=== PATIENT | female | born 1990 | race African-American/Black ===

== ENCOUNTER 2018-08-11 09:13 | Emergency (ER) | payer BC, OTHER ==
[2018-08-11 09:17] VITALS: BMI 31.9
--- NOTE | 2018-08-11 09:35 | PDOC ---
History of Present Illness - General Chief Complaint: Vomiting/Diarrhea Stated Complaint: VOMITING/DIARRHEA Time Seen by Provider: 08/11/18 09:34 History Source: Patient Exam Limitations: No Limitations - History of Present Illness Initial Comments: 08/11/18 09:35 28 year old woman A0 with history anemia who presents with NBNB vomiting, nonbloody diarrhea and 8-9/10 abdominal pain (now resolved) that started yesterday at around 1630. The patient cannot count how many times she vomited yesterday but notes 5 episodes this AM. The patient also reports multiple episodes of diarrhea. Patient reports that her two children and all had the same food, but she was the only one who has had nausea, vomiting or diarrhea. Symptoms were associated with headache, but patient denies fever, dysuria, hematuria. Patient reports that there is a chance that she could be . Her menses this month were 8 days late and she bleed 2 days after her menses ended on Jul 27 and , much heavier than her normal period, containing clots associated with lower abdominal/pelvic pain. Patient was able to drink Gatorade this morning and keep it down. Denies fever, chest pain, shortness of breath, dysuria, hematuria. Denies recent travel, sick contacts. Denies any other complaints at bedside. PSHX: 2 C-sections, 2009, 2012, no other abdominal surgery. Past History - Past Medical History Allergies/Adverse Reactions: Allergies Allergy/AdvReac Type Severity Reaction Status Date / Time No Known Allergies Allergy Verified 04/19/15 09:02 Home Medications: Ambulatory Orders Ondansetron [Zofran -] 4 mg PO BID #14 tablet 08/11/18 Anemia: Yes Asthma: No Cancer: No Cardiac Disorders: No CVA: No COPD: No CHF: No Dementia: No Diabetes: No GI Disorders: No Disorders: No HTN: No Hypercholesterolemia: No Liver Disease: No Seizures: No Thyroid Disease: No - Surgical History Abdominal Surgery: Yes (csectionx2) Appendectomy: No Cardiac Surgery: No Cholecystectomy: No Lung Surgery: No Neurologic Surgery: No Orthopedic Surgery: No - Family Disease History Family Disease History: Diabetes: Grandparents - Reproductive History (#): 2 Para: 2 - Immunization History Immunization Up to Date: No - Suicide/Smoking/Psychosocial Hx Smoking Status: No Smoking History: Never smoked Have you smoked in the past 12 months: No Number of Cigarettes Smoked Daily: 0 Information on smoking cessation initiated: No Hx Alcohol Use: No Drug/Substance Use Hx: No Substance Use Type: None Hx Substance Use Treatment: No *Physical Exam - Vital Signs Last Vital Signs Temp Pulse Resp BP Pulse Ox 98.4 F 96 H 18 122/69 100 08/11/18 09:15 08/11/18 09:15 08/11/18 09:15 08/11/18 09:15 08/11/18 09:15 - Physical Exam Comments: 08/11/18 10:27 GENERAL: Awake, alert, and fully oriented, in no acute distress HEAD: No signs of trauma, normocephalic, atraumatic EYES: EOMI, sclera anicteric, conjunctiva clear ENT: oropharynx clear without exudates. Moist mucosa NECK: Normal ROM, supple LUNGS: No distress, speaks full sentences, clear to auscultation bilaterally HEART: Regular rate and rhythm, normal S1 and S2, no murmurs, rubs or gallops, peripheral pulses normal and equal bilaterally. ABDOMEN: Soft, + periumbilical tenderness to palpation, normoactive bowel sounds. No guarding, no rebound. No masses BACK: No CVA tenderness EXTREMITIES : Normal inspection, Normal range of motion, no edema. No clubbing or cyanosis. NEUROLOGICAL: Cranial nerves II through XII grossly intact. Normal speech, normal gait, no focal sensorimotor deficits SKIN: Warm, Dry, normal turgor, no rashes or lesions noted PELVIC: closed cervical os, thick white fluid clinging to vaginal prasad, cervical motion "aching" but not painful Moderate Sedation - Procedure Monitoring Vital Signs: Procedure Monitoring Vital Signs Temperature 98.4 F 08/11/18 09:15 Pulse Rate 96 H 08/11/18 09:15 Respiratory Rate 18 08/11/18 09:15 Blood Pressure 122/69 08/11/18 09:15 O2 Sat by Pulse Oximetry (%) 100 08/11/18 09:15 ED Treatment Course - LABORATORY CBC & Chemistry Diagram: 08/11/18 09:56 08/11/18 09:56 Medical Decision Making - Medical Decision Making 08/11/18 09:58 28 year old woman A0 with history anemia who presents with NBNB vomiting, nonbloody diarrhea and 8-9/10 abdominal pain (now resolved) that started yesterday at around 1630. The patient cannot count how many times she vomited yesterday but notes 5 episodes this AM. The patient also reports multiple episodes of diarrhea. Symptoms were associated with headache, but patient denies fever, dysuria, hematuria. Patient reports that there is a chance that she could be . Her menses this month were 8 days late and she bleed 2 days after her menses ended on Jul 27 and , much heavier than her normal period, containing clots associated with lower abdominal/pelvic pain. Patient was able to drink Gatorade this morning and keep it down. ED Course: gastroenteritis vs IUP vs ectopic vs pancreatitis vs complete abortin Patient with acute onset of vomititng and diarrhea likely gastroenterieits However with abnormal menstrual cycles this month, possible vs complete as patient had passage of clot with heavy bleeding and pelvic pain/pressure. Patient with periumbilical pain consider pancreatitis. CBC, cmp, lipase, ua, ucs, upreg, G/C swab symptom relief with reglan, fluids, tylenol, reassess 08/11/18 11:49 Patient reassessed. reports feeling improved. resting comfortably. cbc, cmp, lipase - unremarkable Upreg- negative ua- negative 08/11/18 13:56 PO trial successful. Patient feels improved. Patient stable for discharge. Informed of all lab and imaging results. Given follow up instructions and strict return precautions. Patient expressed understanding and agree to plan. *DC/Admit/Observation/Transfer Diagnosis at time of Disposition: Gastroenteritis - Discharge Dispostion Disposition: HOME Condition at time of disposition: Stable Decision to Admit order: No - Prescriptions Prescriptions: Ondansetron [Zofran -] 4 mg PO BID #14 tablet - Referrals - Patient Instructions Printed Discharge Instructions: DI for Viral Gastroenteritis -- Adult Additional Instructions: You were seen in the ED for complaints of vomiting and diarrhea In the ED you were evaluated with labwork. Your results were unremarkable and you showed improvement with antinausea medications and fluids. There does not appear to be an acute need for immediate hospitalization. You are advised to follow up with your Primary Care Physician within 1 week. You were given a prescription for Zofran antinausea medicine to be used as needed. Please take medication as directed. Return to the ED immediately if you experience worsening nausea, vomiting, blood in the vomit, blood in the stool, fever, worsening abdominal pain, vaginal bleeding or discharge, chest pain or shortness of breath. - Post Discharge Activity Forms/Work/School Notes: Back to Work
[2018-08-11] MEDS ORDERED: METOCLOPRAMIDE HCL INJECTION 10 MG/2 ML VIAL IVPUSH ONE (09:57)
[2018-08-11] MEDS ORDERED: SODIUM CHLORIDE 1,000 ML IV SCH (10:00)
[2018-08-11] MEDS ORDERED: METOCLOPRAMIDE HCL INJECTION 10 MG/2 ML VIAL ONE (10:09)
[2018-08-11 10:17] LABS: URINE APPEARANCE CLEAR; URINE BILIRUBIN NEGATIVE (<2.0 mg/dL); URINE COLOR LTYELLOW; URINE GLUCOSE (UA) NEGATIVE (NEGATIVE); URINE KETONE NEGATIVE (NEGATIVE); URINE LEUK ESTERASE TRACE (NEGATIVE); URINE NITRITE NEGATIVE (NEGATIVE); URINE PROTEIN NEGATIVE (NEGATIVE); URINE UROBILINOGEN NEGATIVE mg/dL (0.2-1.0)
[2018-08-11 10:19] LABS: HCG,QUALITATIVE URINE Negative
[2018-08-11] MEDS ORDERED: ACETAMINOPHEN 1000 MG/100 ML VIAL (NON FORMULARY) IVPB ONE (10:24)
[2018-08-11] MEDS ORDERED: ACETAMINOPHEN INJECTION 100 ML IVPB ONE (10:35)
[2018-08-11 11:02] LABS: EPI CELLS MODERATE /HPF (FEW); URINE MUCUS RARE
[2018-08-11 11:07] LABS: BASO % 0.2 % (0-2.0); EOS % 0.3 % (0-4.5); HEMATOCRIT 38.8 % (32.4-45.2); HEMOGLOBIN 11.9 GM/dL (10.7-15.3); LYMPH % 5.2 % (8-40); MCH 25.3 pg (25.7-33.7); MCHC 30.8 g/dl (32.0-36.0); MEAN CELL VOLUME 82.1 fl (80-96); MEAN PLT VOLUME 7.1 fl (7.5-11.1); MONO % 3.4 % (3.8-10.2); NEUT % 90.9 % (42.8-82.8); PLATELET COUNT 389 K/MM3 (134-434); RBC 4.72 M/mm3 (3.60-5.2); WHITE BLOOD COUNT 5.9 K/mm3 (4.0-10.0)
--- NOTE | 2018-08-11 11:38 | PDOC ---
Attending Attestation - Resident Resident Name: Dedra Youngblood - ED Attending Attestation I have performed the following: I have examined & evaluated the patient, The case was reviewed & discussed with the resident, I agree w/resident's findings & plan, Exceptions are as noted - HPI HPI: 08/11/18 11:35 The patient is a 28 year old female with a past medical history of anemia who presents with vomiting, diarrhea and abdominal cramps that started yesterday at around 1630. Patient reports multiple episodes of nonbilious nonbloody vomiting , and states she had 5 episodes this morning. She also reports multiple episodes of diarrhea as well as pain around her bellybutton that is now resolved. Pt states that the pain was cramp-like and associated with vomiting. Denies any pain currently. Denies fever, chest pain, shortness of breath, dysuria, hematuria. Denies recent travel, sick contacts. Denies any other complaints at bedside. Deneis sick contact. Denies recent travel. Surgical hx: x2 - Physicial Exam PE: 08/11/18 11:36 "GENERAL: Awake, alert, and fully oriented, in no acute distress. HEAD: No signs of trauma EYES: PERRLA, EOMI, sclera anicteric, conjunctiva clear ENT: Auricles normal inspection, hearing grossly normal, nares patent, oropharynx clear without exudates. Moist mucosa NECK: Nontender, no stepoffs, Normal ROM, supple, no lymphadenopathy, JVD, or masses LUNGS: Breath sounds equal, clear to auscultation bilaterally. No wheezes, and no crackles HEART: Regular rate and rhythm, normal S1 and S2, no murmurs, rubs or gallops ABDOMEN: Soft, nontender, normoactive bowel sounds. No guarding, no rebound. No masses EXTREMITIES: Normal range of motion, no edema. No clubbing or cyanosis. No cords, erythema, or tenderness NEUROLOGICAL: Cranial nerves II through XII intact. 5/5 strength and sensation in all extremities, Normal speech, normal gait, normal cerebellar function SKIN: Warm, Dry, normal turgor, no rashes or lesions noted. - Medical Decision Making 08/11/18 11:36 28 F with N/V/D and abdominal cramps. likely viral gastroenteritis. Pt with benign abdomen on exam. No evidence of appy/rupa/colitis. - Labs, UA, UPT - IVF, GI cocktail 08/11/18 13:12 Labs wnl UA with 7 WBCs but pt without dysuria. Will defer abx at this time. Pt reassessed - tolerating PO without issue Repeat abdominal exam benign Pt is well appearing, with normal vitals. Clinically stable for DC at this time. I discussed the physical exam findings, ancillary test results and final diagnoses with the patient. I answered all of the patient's questions. The patient was satisfied with the care received and felt comfortable with the discharge plan and treatment plan. The patient agrees to follow up with the primary care physician within 24-72 hours.
[2018-08-11] MEDS ORDERED: FAMOTIDINE 20 MG/50 ML IVPB 20 MG/50 ML MG IVPB ONE ×2 (11:47→12:15)
[2018-08-11] MEDS ORDERED: MAG HYDROX/AL HYDROX/SIMETH 30 ML UNIT-DOSE CUP PO ONE (11:47)
[2018-08-11] MEDS ORDERED: MAG HYDROX/AL HYDROX/SIMETH 30 ML UNIT-DOSE CUP ONE (12:15)
[2018-08-11 13:09] LABS: ALBUMIN 3.9 g/dl (3.4-5.0); ALK PHOS 49 U/L (45-117); ANION GAP 7 MMOL/L (8-16); BILIRUBIN,TOTAL 0.4 mg/dL (0.2-1); BLOOD UREA NITROGEN 10 mg/dL (7-18); CHLORIDE 107 mmol/L (98-107); CO2 24 mmol/L (21-32); CREATININE 1.1 mg/dL (0.55-1.3); GLUCOSE,RANDOM 91 mg/dL (74-106); LIPASE 146 U/L (73-393); POTASSIUM 3.8 mmol/L (3.5-5.1); SGOT/AST 19 U/L (15-37); SGPT/ALT 27 U/L (13-61); SODIUM 138 mmol/L (136-145); TOT PROT 7.4 g/dl (6.4-8.2)
[2018-08-11 13:16] VITALS: BP 112/65; PULSE 73; TEMP 98.8
== END 2018-08-11 14:15 | disposition home or self-care (01) ==
LOC: JER 09:13
PROC: 3E0337Z Introduction of Electrolytic and Water Balance Substance into Peripheral Vein, Percutaneous Approach (ICD-10-PCS; principal; 2018-08-11)
PROC: 3E033GC Introduction of Other Therapeutic Substance into Peripheral Vein, Percutaneous Approach (ICD-10-PCS; 2018-08-11)
PROC: 3E033GC Introduction of Other Therapeutic Substance into Peripheral Vein, Percutaneous Approach (ICD-10-PCS; 2018-08-11)
PROC: 3E033NZ Introduction of Analgesics, Hypnotics, Sedatives into Peripheral Vein, Percutaneous Approach (ICD-10-PCS; 2018-08-11)
DX: K52.9 Noninfective gastroenteritis and colitis, unspecified (principal)
CPT/HCPCS: 36415; 80053; 81003; 81015; 83690; 84703; 85025; 86850; 86900; 86901; 87086; 87491; 87591; 99282-25; J0131; J7030

== ENCOUNTER 2019-09-10 12:09 | Inpatient (IN) | payer OTHER ==
[2019-09-10 13:06] VITALS: BMI 36.6
[2019-09-10] MEDS ORDERED: morphine SULFATE/PF 0.5 MG/ML (2cc Syringe - QUVA) EP ONE (13:10)
[2019-09-10] MEDS ORDERED: ONDANSETRON 4 MG/2 ML VIAL IVPUSH PRN (13:10)
[2019-09-10] MEDS ORDERED: OXYTOCIN 20 UNITS in 0.9% NS 20 UNIT/1,000 ML INFUS.BAG IV ONE ×2 (13:48→15:06)
[2019-09-10] MEDS ORDERED: CITRIC ACID/SODIUM CITRATE 30 ML UNIT-DOSE CUP PO ONE (14:00)
[2019-09-10] MEDS ORDERED: ELECTROLYTE-148 SOLN 1,000 ML IV SCH ×2 (14:00→15:00)
[2019-09-10] MEDS ORDERED: morphine SULFATE/PF 0.5 MG/ML (2cc Syringe - QUVA) ONE (14:16)
[2019-09-10] MEDS ORDERED: PHENYLEPHRINE HCL 10 MG/1 ML SINGLE DOSE VIAL ONE (14:26)
[2019-09-10] MEDS ORDERED: OXYTOCIN 10 UNITS/ML VIAL ONE (14:42)
[2019-09-10] MEDS ORDERED: oxyCODONE HCL 5 MG TABLET PO PRN (15:54)
[2019-09-10] MEDS ORDERED: WITCH HAZEL 50% (TUCKS) 40 PAD/JAR PAD TP PRN (15:54)
[2019-09-10] MEDS ORDERED: BENZOCAINE 28 GM HEMORRHOIDAL OINTMENT PR PRN (15:54)
[2019-09-10] MEDS ORDERED: BENZOCAINE 20% 57 GM BOTTLE TP PRN (15:54)
[2019-09-10] MEDS ORDERED: METHYLERGONOVINE MALEATE 0.2 MG/1 ML AMP IM PRN (15:54)
[2019-09-10] MEDS ORDERED: diphenhydrAMINE HCL 25 MG CAPSULE (FP) PO PRN (15:54)
--- NOTE | 2019-09-10 15:56 | HP ---
Past Medical History - Primary Care Physician PCP:: Av Hargrove - Admission Chief Complaint: 39 weeks, 2previous c/s, request of repeat c/s History of Present Illness: 29 yo f 39 weeks with 2 previous c/s, request of repeat c/s, risks associated with repeat c/s has explained to patient History Source: Patient Limitations to Obtaining History: No Limitations - Past Medical History ...: 4 ...Para: 2 ...Term: 2 ...: 0 ...Spon : 1 ...Induced : 0 ...LMP: 12/07/18 ... Weeks Gestation by Dates: 39.4 ...EDC by Dates: 09/13/19 ...EDC by Sono: 09/13/19 - Past Surgical History Hx Myomectomy: No Hx Transabdominal Cerclage: No - Smoking History Smoking history: Never smoked Have you smoked in the past 12 months: No Aproximately how many cigarettes per day: 0 - Alcohol/Substance Use Hx Alcohol Use: No - Social History Usual Living Arrangement: Yes: With Spouse History of Recent Travel: No Home Medications - Allergies Allergies/Adverse Reactions: Allergies Allergy/AdvReac Type Severity Reaction Status Date / Time No Known Allergies Allergy Verified 09/10/19 14:01 - Home Medications Home Medications: Ambulatory Orders Ferrous Sulfate [Iron] 325 mg PO DAILY 09/10/19 Vitamins (Sjr) - 1 tab PO DAILY 09/10/19 Ibuprofen [Motrin -] 600 mg PO QID PRN #28 tablet 09/13/19 Review of Systems - Review of Systems Eyes: reports: No Symptoms HENT: reports: No Symptoms Neck: reports: No Symptoms Cardiovascular: reports: No Symptoms Respiratory: reports: No Symptoms Gastrointestinal: reports: No Symptoms Genitourinary: reports: No Symptoms Breasts: reports: No Symptoms Reported Musculoskeletal: reports: No Symptoms Integumentary: reports: No Symptoms Neurological: reports: No Symptoms Endocrine: reports: No Symptoms Hematology/Lymphatic: reports: No Symptoms Psychiatric: reports: No Symptoms Physical Exam - Maternity Vital Signs: Vital Signs Temperature 98.1 F 09/10/19 12:55 Pulse Rate 87 09/10/19 12:55 Respiratory Rate 09/10/19 12:55 Blood Pressure 122/66 09/10/19 12:55 O2 Sat by Pulse Oximetry (%) Constitutional: Yes: Well Nourished, No Distress, Calm Eyes: Yes: WNL, Conjunctiva Clear, EOM Intact HENT: Yes: WNL, Atraumatic, Normocephalic Neck: Yes: WNL, Supple, Trachea Midline Cardiovascular: Yes: WNL, Regular Rate and Rhythm Breast(s): Yes: WNL - Abdominal Exam/OB Fundal Height: 40 Number of Fetuses: Single Presentation: Vertex Contractions: No Regularity: Irritability Intensity: Unaware Monitor Mode: External Heart Rate Location: [facility] - Vaginal Exam/OB Vaginal Bleediing: No Speculum Exam: No Dilatation (cm): closed Effacement (%): 25 Amniotic Membrane Status: Intact Station: -3 - Physical Exam Musculoskeletal: Yes: WNL Extremities: Yes: WNL Edema: LLE: Trace, RLE: Trace Deep Tendon Reflex Grade: Normal +2 Psychiatric: Yes: WNL Hemorrhage Risk Assessment - Risk Factors Medium Risk Factors: Yes: Prior , uterine surgery,or multiple laparotomies Risk Score: 1 Risk Level: Medium Risk Problem List - Problems (1) with 39 completed weeks gestation Code(s): Z3A.39 - 39 WEEKS GESTATION OF (2) Previous delivery affecting Code(s): O34.219 - MATERNAL CARE FOR UNSP TYPE SCAR FROM PREVIOUS DEL (3) Obesity (BMI 30.0-34.9) Code(s): E66.9 - OBESITY, UNSPECIFIED Assessment/Plan admit for repeat c/s, risks ahs been explained to patient
[2019-09-10] MEDS ORDERED: OXYTOCIN 20 UNITS in 0.9% NS 20 UNIT/1,000 ML INFUS.BAG IV SCH (16:00)
[2019-09-10] MEDS ORDERED: DEXTROSE 5%-LACTATED RINGERS 1,000 ML IV SCH (16:00)
--- NOTE | 2019-09-10 16:14 | OP ---
Operative Note - Note: Operative Date: 09/10/19 Pre-Operative Diagnosis: 39 weeks, previous c/s Operation: repeat LST c/s Findings: live baby girl 9/9 cord around neck once. ROT position, clear AF Surgeon: Av Hargrove Pattern Wheel Maker: Leonardo Anderson Anesthesiologist/SENIOR RESEARCH ASSOCIATE: Marisol Puri Anesthesia: Spinal Specimens Removed: placenta Estimated Blood Loss (mls): 700 Drains & Tubes with Location: lovelace Drains, Volume Out (mls): 100 Blood Volume Replaced (mls): 0 Fluid Volume Replaced (mls): 1,300 Operative Report Dictated: Yes
[2019-09-10] MEDS: IBUPROFEN 800 MG/8 ML IJ IVPB PRN (16:17)
[2019-09-10] MEDS: CEFAZOLIN 1 GM/D5W 1 GM/50 ML BAG IVPB SCH (21:30)
--- NOTE | 2019-09-11 01:46 | OP ---
DATE OF OPERATION: 09/10/2019 PREOPERATIVE DIAGNOSIS: at 39 weeks, previous section, requesting repeat section. POSTOPERATIVE DIAGNOSIS: at 39 weeks, previous section, requesting repeat section, fibroid uterus. PROCEDURE: Repeat low segment transverse section. SURGEON: Av Hargrove MD WARDROBE ASSISTANT: ELLIE Easley ANESTHESIA: Spinal anesthesia. ANESTHESIOLOGIST: Marisol Puri DO FINDINGS: Live baby girl, Apgars 9 and 9, ROT position, cord around the neck x1. DESCRIPTION OF PROCEDURE: Patient was taken to the operating room where after adequate spinal anesthesia, abdomen and perineum were prepped and draped. Pfannenstiel abdominal skin incision was made over the previous incision. Abdominal wall was cut layer by layer until the peritoneum was exposed and incised. Upon entry into the abdominal cavity, lower uterine segment was identified and the uterovesical fold of the peritoneum was established. Bladder was pushed down. Then with the lower blade of the [place] retractor in the pelvis, a low transverse uterine incision was made and the incision was extended laterally. Amniotic sac was entered with clear fluid. Head delivered. Nasal sinuses were suctioned. Cord around the neck x1 was reduced and live baby girl was delivered without any difficulty. Placenta was delivered manually. Uterine cavity was cleared of all remaining tissue. Uterine incision was closed in 2 layers, first layer with 0 Biosyn continuous suture and the second layer with 0 Biosyn imbricating the first layer. There was some sinus bleeding in the lower uterine segment, which was sutured with interrupted suture of 0 Biosyn and hemostasis was established. The pelvic cavity was irrigated. No active bleeding was seen. Bladder flap was closed with 2-0 Vicryl continuous suture. Both tubes and ovaries were normal. Uterus was enlarged, consistent with fibroid uterus. All of the lap pad, sponge, and instrument counts were correct. Peritoneum was closed with 0 Biosyn continuous suture. Muscles were brought together with interrupted suture of 0 Biosyn. Fascia was closed with 0 Biosyn continuous suture, subcutaneous fat with interrupted suture of 0 Biosyn, and skin was closed with 3-0 Vicryl continuous subcuticular suture. Patient tolerated the procedure well and left the OR in good condition. Lashae [id number]
[2019-09-11] MEDS: CEFAZOLIN 1 GM/D5W 1 GM/50 ML BAG IVPB SCH (05:47)
[2019-09-11] MEDS: IBUPROFEN 800 MG/8 ML IJ IVPB PRN (06:44)
--- NOTE | 2019-09-11 07:22 | PN ---
Progress Note (short form) - Note Progress Note: pod 1 s/p repeat c/s.has mild cramps, comfortable Last Vital Signs Temp Pulse Resp BP Pulse Ox 99.3 F 86 20 119/59 L 100 09/11/19 05:53 09/11/19 05:53 09/11/19 07:00 09/11/19 05:53 09/10/19 16:30 abdomen soft, no distension, no cva , incision dry, clean no calf tenderness no excess vaginal bleeding pod1 , s/p repeat LST c/s doing well, plan ambulate cbc advance diet pain management
[2019-09-11 08:42] LABS: BASO % 0.3 % (0-2.0); EOS % 1.3 % (0-4.5); HEMOGLOBIN 9.3 GM/dL (10.7-15.3); LYMPH % 9.3 % (8-40); MCH 26.6 pg (25.7-33.7); MCHC 32.2 g/dl (32.0-36.0); MEAN CELL VOLUME 82.7 fl (80-96); MEAN PLT VOLUME 7.7 fl (7.5-11.1); MONO % 7.1 % (3.8-10.2); PLATELET COUNT 238 K/MM3 (134-434); RBC 3.51 M/mm3 (3.60-5.2); RDW 16.4 % (11.6-15.6); WHITE BLOOD COUNT 8.9 K/mm3 (4.0-10.0)
[2019-09-11] MEDS: ENOXAPARIN NA (PORCINE) 40 MG/0.4 ML DISP.SYRIN SQ SCH (09:09)
[2019-09-11] MEDS ORDERED: BISACODYL 10 MG SUPP.RECT PR PRN (15:54)
[2019-09-11] MEDS: ACETAMINOPHEN 325 MG TABLET (FP) PO PRN ×2 (16:00→23:59)
[2019-09-11] MEDS: IBUPROFEN 600 MG TABLET (FP) PO PRN (16:00)
[2019-09-11] MEDS: SIMETHICONE 80 MG TAB.CHEW (FP) PO PRN (16:01)
[2019-09-12] MEDS: IBUPROFEN 600 MG TABLET (FP) PO PRN ×4 (08:15→21:43)
[2019-09-12] MEDS: SIMETHICONE 80 MG TAB.CHEW (FP) PO PRN ×4 (08:15→21:42)
[2019-09-12] MEDS: oxyCODONE HCL 5 MG TABLET PO PRN ×3 (08:15→21:43)
[2019-09-12] MEDS: ENOXAPARIN NA (PORCINE) 40 MG/0.4 ML DISP.SYRIN SQ SCH (10:25)
--- NOTE | 2019-09-12 12:24 | PN ---
Post Progress Note - Subjective Subjective: Patient without acute complaints. Reports tolerating oral intake without nausea or vomiting. Ambulating without dizziness. Denies fevers or chills. Pain well controlled with oral pain medication. Pumping/breast feeding without issue. Passing flatus, no BM. Post Day: 2 Type of Delivery: Repeat C/S Vital Signs: Vital Signs Temperature 98 F 09/12/19 10:00 Pulse Rate 84 09/12/19 10:00 Respiratory Rate 20 09/12/19 10:00 Blood Pressure 116/68 09/12/19 10:00 O2 Sat by Pulse Oximetry (%) 100 09/10/19 16:30 Breast Exam: Yes: Soft Uterus: Yes: Fundus Firm, Fundus below umbilicus, Non-tender Incision: Yes: Dressing dry and intact Abdomen/GI: Yes: Abdomen soft, Passing flatus, Tolerating PO Lochia: Yes: Rubra Lochia, amount: Small Extremities: Yes: Calves non-tender Perineum: Yes: Intact Activity: Ambulating - Labs Labs: CBC WBC 8.9 K/mm3 (4.0-10.0) 09/11/19 07:46 RBC 3.51 M/mm3 (3.60-5.2) L 09/11/19 07:46 Hgb 9.3 GM/dL (10.7-15.3) L 09/11/19 07:46 Hct 29.0 % (32.4-45.2) L 09/11/19 07:46 MCV 82.7 fl (80-96) 09/11/19 07:46 MCH 26.6 pg (25.7-33.7) 09/11/19 07:46 MCHC 32.2 g/dl (32.0-36.0) 09/11/19 07:46 RDW 16.4 % (11.6-15.6) H 09/11/19 07:46 Plt Count 238 K/MM3 (134-434) 09/11/19 07:46 MPV 7.7 fl (7.5-11.1) 09/11/19 07:46 Absolute Neuts (auto) 7.3 K/mm3 (1.5-8.0) 09/11/19 07:46 Neutrophils % 82.0 % (42.8-82.8) D 09/11/19 07:46 Lymphocytes % 9.3 % (8-40) D 09/11/19 07:46 Monocytes % 7.1 % (3.8-10.2) 09/11/19 07:46 Eosinophils % 1.3 % (0-4.5) 09/11/19 07:46 Basophils % 0.3 % (0-2.0) 09/11/19 07:46 Nucleated RBC % 0 % (0-0) 09/11/19 07:46 Assessment/Plan POD#2 s/p repeat LTC/S doing well, stable, afebrile. Asymptomatic for anemia. Post op care reviewed. Continue routine care. Ambulation encouraged Advance diet as tolerated.
[2019-09-12] MEDS ORDERED: SENNOSIDES/DOCUSATE COMBO (SENNA PLUS) TABLET (UD) PO PRN (22:00)
[2019-09-13 07:48] LABS: BASO % 0.5 % (0-2.0); EOS % 2.2 % (0-4.5); HEMOGLOBIN 8.2 GM/dL (10.7-15.3); LYMPH % 22.4 % (8-40); MCHC 31.4 g/dl (32.0-36.0); MEAN CELL VOLUME 82.9 fl (80-96); MEAN PLT VOLUME 7.9 fl (7.5-11.1); MONO % 8.3 % (3.8-10.2); NEUT % 66.6 % (42.8-82.8); PLATELET COUNT 243 K/MM3 (134-434); RBC 3.14 M/mm3 (3.60-5.2); RDW 16.3 % (11.6-15.6); WHITE BLOOD COUNT 6.1 K/mm3 (4.0-10.0)
[2019-09-13] MEDS: ACETAMINOPHEN 325 MG TABLET (FP) PO PRN ×2 (08:34→12:49)
[2019-09-13] MEDS: IBUPROFEN 600 MG TABLET (FP) PO PRN ×2 (08:34→12:49)
[2019-09-13] MEDS: SIMETHICONE 80 MG TAB.CHEW (FP) PO PRN ×2 (08:35→12:49)
[2019-09-13 09:25] VITALS: BP 136/73; PULSE 91; TEMP 98.6
[2019-09-13] MEDS: ENOXAPARIN NA (PORCINE) 40 MG/0.4 ML DISP.SYRIN SQ SCH (09:47)
--- NOTE | 2019-09-13 12:00 | DS ---
Physical Exam-SPRING ENCASER Vital Signs: Vital Signs Temperature 98.6 F 09/13/19 09:00 Pulse Rate 91 H 09/13/19 09:00 Respiratory Rate 18 09/13/19 09:00 Blood Pressure 136/73 09/13/19 09:00 O2 Sat by Pulse Oximetry (%) 100 09/10/19 16:30 Constitutional: Yes: Well Nourished, No Distress, Calm Eyes: Yes: WNL HENT: Yes: WNL, Atraumatic, Normocephalic Neck: Yes: WNL, Supple, Trachea Midline Cardiovascular: Yes: WNL, Regular Rate and Rhythm Respiratory: Yes: WNL, Regular, CTA Bilaterally Gastrointestinal: Yes: WNL, Normal Bowel Sounds, Soft ...Rectal Exam: Yes: Deferred Renal/: Yes: WNL Internal Exam Deferred: Yes ....Post : Yes: Uterus firm, Uterus non-tender, Slight lochia rubra Breast(s): Yes: WNL Musculoskeletal: Yes: WNL Extremities: Yes: WNL Edema: Yes Edema: LLE: Trace, RLE: Trace Integumentary: Yes: WNL Wound/Incision: Yes: Clean/Dry, Well Approximated, Steri Strips, Open to air Neurological: Yes: WNL, Alert, Oriented ...Motor Strength: WNL Psychiatric: Yes: WNL, Alert, Oriented Labs: CBC, BMP 09/13/19 07:15 Delivery - Delivery Section: Repeat, Low Flap Transverse Type of Anesthesia: Spinal Episiotomy/Laceration: None EBL (cc): 700 Delivery, Single - Stages of Labor Date of Delivery: 09/10/19 Time of Delivery: 14:50 Time Placenta Delivered: 14:51 Placenta: Yes: Manual Removal - Condition of Research Physicist/Mechanical Product Engineer Present: Yes Name: Ronald Ziegler Infant Gender: Female Weight: 3.289 kg Position: OT Total Hours ROM (Hrs/Mins): 2min - 1 Minute Total Score: 9 5 Minutes Total Score: 9 - Feeding Plan Initial Plan: Elected not to breastfeed exclusively throughout hospitalization Benefits of Exclusively reinforced: Yes Discharge Summary Problems reviewed: Yes Reason For Visit: Procedures: Principal: Repeat LT C/S Hospital Course: Normal postoperative recovery, normal recovery Plan of Treatment: Follow-up postop visit in 1 week Goals: Full postop recovery Condition: Good - Instructions Diet, Activity, Other Instructions: Physical activity Resume your normal everyday activity as tolerated no heavy lifting or exercise until seen by your surgeon. You may walk unlimited janet of and climb stairs. You may resume driving the car when you feel safe and comfortable behind the wheel. No sexual activity as instructed. Wound care If you have a bandage, leave it on, and keep dry for 48-72 hours. After that time discard the outer bandage. If they are tapes on the skin under the out of bandage leave them in place. They will peel off in the next 7 to 10 days. Do Not Peel them off. You may shower the day after surgery. If there are tapes present on the skin, you may shower over them. Diet There are no dietary restrictions. Eat healthy, high-fiber foods. Drink 6 to 8 glasses of liquid each day. This will assist in keeping your bowels are regular. Pain management You may take Tylenol or acetaminophen or Ibuprofen (for example, Motrin, Advil etc.) from my pain prescription medication is ordered should be taken as prescribed for moderate to severe pain. Call MD for any of the following: Severe pain not relieved by medication Fever of 101 or higher Excessive bleeding or drainage on dressing Inability to urinate Referrals: Av Hargrove MD [Staff Physician] - Disposition: HOME - Home Medications Comprehensive Discharge Medication List: Ambulatory Orders Ferrous Sulfate [Iron] 325 mg PO DAILY 09/10/19 Vitamins (Sjr) - 1 tab PO DAILY 09/10/19 Prescription Drug Monitoring Program (I-STOP) results: I-STOP not reviewed
[2019-09-14] MEDS ORDERED: PRENATAL VITAMINS W/ FOLIC ACID TABLET (FP) PO SCH (10:00)
[2019-09-14] MEDS ORDERED: FERROUS SO4 325 MG TABLET (FP) PO SCH (10:00)
--- NOTE | 2019-09-16 19:23 | PATH ---
Surgical Pathology Report Patient Name: CARLOS ARMSTRONG Med. Rec. #: [id number] /Age/Gender: 1990 (Age: 29) / F Account: [id number] Location: [facility] OBS/LIVESTOCK DEALER Taken: 09/10/2019 Received: 09/11/2019 Reported: 09/16/2019 Physicians: Av Hargrove M.D. Specimen(s) Received PLACENTA Clinical History , x2, 39.4 weeks gestation Final Diagnosis PLACENTA: THIRD TRIMESTER PLACENTA. TRIVASCULAR CORD. MEMBRANES WITH NO DIAGNOSTIC ABNORMALITIES. Electronically Signed Pj Nath M.D. Gross Description The specimen is received fresh labeled placenta and is a 414 gram, 17.0 x 14.5 x 3.0 cm. placenta with attached membranes and umbilical cord. The attached membranes are gilbert, thick, cloudy and insert marginally. The umbilical cord measures 17 cm. in length and averages 1 cm. in diameter. The cord inserts centrally. No true knots or strictures are identified. Cut surface of the umbilical cord reveals 3 vessels. The surface is elizabeth-blue with minimal fibrin deposition and appropriate caliber vessels. The maternal surface is red-brown with focal defects. Sectioning reveals red-brown, spongy parenchyma. No lesions are identified. Microelectronics Assembler sections are submitted in three cassettes as follows: 1- membrane rolls and umbilical cord; 2-3- full thickness sections of placenta. /09/14/2019 saudi/09/14/2019
== END 2019-09-13 15:23 | disposition home or self-care (01) | DRG 788 ==
LOC: JLDR 12:09 → MERGE 14:00 → J3W 17:37
PROVIDERS: ADMIT Obstetrics & Gynecology; ATTEND Obstetrics & Gynecology
PROC: 10D00Z1 Extraction of Products of Conception, Low, Open Approach (ICD-10-PCS; principal; 2019-09-10)
DX: O34.211 Maternal care for low transverse scar from previous cesarean delivery (principal); O69.81X0 Labor and delivery complicated by cord around neck, without compression, not applicable or unspecified; O34.13 Maternal care for benign tumor of corpus uteri, third trimester; D25.9 Leiomyoma of uterus, unspecified; O99.02 Anemia complicating childbirth; D64.9 Anemia, unspecified; Z3A.39 39 weeks gestation of pregnancy; Z37.0 Single live birth
CPT/HCPCS: 36415; 36600; 82803; 85025; 88307-TC

== ENCOUNTER 2024-04-01 10:19 | Emergency (ER) | payer OTHER ==
[2024-04-01] MEDS ORDERED: METHOCARBAMOL 500 MG TABLET ONE (12:14)
[2024-04-01] MEDS ORDERED: KETOROLAC TROMETHAMINE 30 MG/1 ML VIAL ONE (12:14)
[2024-04-01] MEDS: METHOCARBAMOL 500 MG TABLET PO ONE (12:18)
[2024-04-01] MEDS: KETOROLAC TROMETHAMINE 30 MG/1 ML VIAL IM ONE (12:18)
[2024-04-01 12:20] VITALS: BP 137/82; PULSE 68; RESP 18; TEMP 98.7; BMI 34.0
== END 2024-04-01 13:32 | disposition home or self-care (01) ==
LOC: JERFT 10:19
PROC: 3E0233Z Introduction of Anti-inflammatory into Muscle, Percutaneous Approach (ICD-10-PCS; principal; 2024-04-01)
DX: G24.3 Spasmodic torticollis (principal); M54.2 Cervicalgia; M62.838 Other muscle spasm
CPT/HCPCS: 99284-25